=== PATIENT | male | born 1985 | race Caucasian/White ===

== ENCOUNTER 2022-09-04 21:25 | Emergency (ER) | payer MEDICARE, MEDICAID ==
[2022-09-04] MEDS ORDERED: hydrOXYzine HCl 25 MG Tab PO ONE (21:26)
== END 2022-09-04 22:52 | disposition home or self-care (01) ==
LOC: FB.ED 21:25
DX: F41.9 Anxiety disorder, unspecified (principal); Z72.0 Tobacco use
CPT/HCPCS: 99283; A9270

== ENCOUNTER 2023-09-06 23:27 | Emergency (ER) | payer MEDICARE, MEDICAID ==
[2023-09-06] MEDS ORDERED: Sodium Chloride 0.9% 10 ML Syringe FLUSH PRN (23:28)
[2023-09-06 23:43] LABS: BASOPHILS ABSOLUTE AUTO 0.1 x10-3/uL (0.0-0.3); BASOPHILS PERCENT AUTO 0.5 % (0.3-3.8); EOSINOPHILS PERCENT AUTO 0.3 % (0.1-6.8); HEMATOCRIT 45.2 % (38.3-50.1); LYMPHOCYTES ABSOLUTE AUTO 2.9 x10-3/uL (0.5-4.5); LYMPHOCYTES PERCENT AUTO 23.5 % (15.8-45.3); MEAN CORPUSCULAR HGB CONC 33.1 g/dL (28.7-35.3); MEAN CORPUSCULAR VOLUME 87.6 fL (80.8-98.7); MEAN PLATELET VOLUME 6.7 fL (6.7-11.0); MONOCYTES ABSOLUTE AUTO 0.9 x10-3/uL (0.0-1.2); MONOCYTES PERCENT AUTO 7.3 % (5.5-15.2); NEUTROPHILS ABSOLUTE AUTO 8.4 x10-3/uL (1.7-6.9); NEUTROPHILS PERCENT AUTO 68.4 % (40.3-71.8); PLATELET COUNT,PLT 324 x10(3)uL (117-477); RED BLOOD CELL COUNT 5.16 x10(6)uL (3.90-5.90); RED CELL DISTRIBUTION WIDTH 13.6 % (12.4-15.0); WHITE BLOOD CELL COUNT,WBC 12.3 x10-3/uL (3.2-10.1)
[2023-09-06 23:48] LABS: BLOOD UREA NITROGEN,BUN 10 mg/dL (7-18); BUN/CREATININE RATIO 7.7 (9-20); CALCIUM 9.4 mg/dL (8.6-10.2); CARBON DIOXIDE,CO2 29 mmol/L (21-32); CHLORIDE,CL 100 mmol/L (100-110); CREATININE 1.3 mg/dL (0.70-1.30); ESTIMATED GFR 73 mL/min (>60); GLUCOSE RANDOM 102 mg/dL (80-116); SODIUM,NA 139 mmol/L (135-145)
[2023-09-06 23:53] LABS: ACETAMINOPHEN < 2 ug/mL (<2); SALICYLATE 3.9 mg/dL (<2.8)
[2023-09-07] LABS: A/G RATIO 1.1; ALANINE AMINOTRANSFERASE,ALT 54 U/L (12-36); ALBUMIN 4.2 g/dL (3.5-5.2); ALKALINE PHOSPHATASE 108 IU/L (56-112); ASPARTATE AMNIOTRANSFERASE,AST 41 IU/L (5-25); BILIRUBIN TOTAL 0.5 mg/dL (0.1-1.3); PROTEIN TOTAL,TP 8.1 g/dL (6.0-8.0)
[2023-09-07 00:17] LABS: THC SCREEN,URINE POSITIVE (NEGATIVE)
[2023-09-07 00:18] LABS: AMPHETAMINES SCREEN, URINE NEGATIVE (NEGATIVE); BARBITURATE SCREEN,URINE NEGATIVE (NEGATIVE); BENZODIAZEPINES SCREEN,URINE NEGATIVE (NEGATIVE); BUPRENORPHINE SCREEN,URINE NEGATIVE (NEGATIVE); METHADONE SCREEN, URINE NEGATIVE (NEGATIVE); METHAMPHETAMINE SCREEN, URINE NEGATIVE (NEGATIVE); OXYCODONE SCREEN,URINE NEGATIVE (NEGATIVE)
[2023-09-07 00:19] LABS: APPEARANCE,URINE CLEAR (CLEAR); COLOR,URINE YELLOW (YELLOW)
[2023-09-07 00:20] LABS: BACTERIA,URINE OCCASIONAL (NS); BILIRUBIN,URINE NEGATIVE (NEGATIVE); GLUCOSE,URINE NORMAL (NORMAL); KETONES,URINE NEGATIVE (NEGATIVE); LEUKOCYTE ESTERASE,URINE NEGATIVE (NEGATIVE); NITRITE,URINE NEGATIVE (NEGATIVE); OCCULT BLOOD,URINE NEGATIVE (NEGATIVE); PROTEIN,URINE NEGATIVE (NEGATIVE); RBC,URINE 0-5 (0-5); SQUAMOUS EPITHELIAL CELLS,UR OCCASIONAL (NS,R,O); UROBILINOGEN,URINE NORMAL (NEGATIVE); WBC,URINE 0-5 (0-5)
[2023-09-07] MEDS: LORazepam 2 MG/ML SDV IVPUSH PRN (00:20)
[2023-09-07] MEDS: Sodium Chloride 0.9% 1,000 ML IV SCH (01:24)
== END 2023-09-07 01:33 | disposition home or self-care (01) ==
LOC: FB.ED 23:27
DX: F30.9 Manic episode, unspecified (principal); F23 Brief psychotic disorder; F12.10 Cannabis abuse, uncomplicated; F41.9 Anxiety disorder, unspecified
CPT/HCPCS: 36415; 80053; 80143; 80179; 80307; 81001; 84484; 85025; 93005; 93010; 96361; 96374; 99284; 99285-25; J2060; J7030